=== PATIENT | female | born 1955 | race Two or more races ===

== ENCOUNTER → 2016-11-27 | Outpatient (CLI) | payer BC ==
[2016-11-27 13:23] LABS: Hemoglobin A1C 6.9 % (4.2-6.1)
== END | disposition home or self-care (01) ==
LOC: LABWHC1 07:13
PROVIDERS: ATTEND Internal Medicine
DX: E11.9 Type 2 diabetes mellitus without complications (principal)
CPT/HCPCS: 36415; 82947; 83036

== ENCOUNTER → 2017-03-05 | Outpatient (CLI) | payer BC | END | disposition home or self-care (01) | LOC: LABWHC1 07:44 | PROVIDERS: ATTEND Internal Medicine | DX: E11.9 Type 2 diabetes mellitus without complications (principal) | CPT/HCPCS: 36415; 82947; 83036 ==

== ENCOUNTER → 2017-03-23 | Outpatient (CLI) | payer OTHER ==
--- NOTE | 2017-03-23 16:48 | XR ---
EXAMINATION TYPE: XR ankle complete RT DATE OF EXAM: 03/23/2017 COMPARISON: NONE HISTORY: Ankle pain TECHNIQUE: 3 views FINDINGS: There is mild soft tissue swelling over the lateral malleolus. Ankle mortise is anatomic. T here is mild spurring of the posterior malleolus. I see no fracture. IMPRESSION: No fracture. Mild soft tissue swelling. There is noted sclerosis and cystic change in the medial dome of the talus consistent with some osteo arthritis or osteochondritis dissecans.
--- NOTE | 2017-03-23 16:50 | XR ---
EXAMINATION TYPE: XR foot complete RT DATE OF EXAM: 03/23/2017 COMPARISON: NONE HISTORY: Foot pain TECHNIQUE: 3 views FINDINGS: There is some narrowing and spurring at the first MP joint. I see no fracture nor dislocati on. Metatarsals are intact. IMPRESSION: Mild osteoarthritis in the big toe. No fracture.
== END | disposition home or self-care (01) ==
LOC: RADXRMAIN 16:06
PROVIDERS: ATTEND Emergency Medicine
DX: M19.071 Primary osteoarthritis, right ankle and foot (principal); M79.89 Other specified soft tissue disorders

== ENCOUNTER → 2017-04-01 | Outpatient (CLI) | payer BC ==
--- NOTE | 2017-04-04 10:56 | MM ---
Reason for exam: screening (asymptomatic). Last mammogram was performed 1 year and 1 month ago. History: Patient is postmenopausal. Family history of breast cancer in sister at age 54. Took estrogen for 11 years beginning at age 40. Physical Findings: A clinical breast exam by your physician is recommended on an annual basis and results should be correlated with mammographic findings. MG Screening Mammo w CAD Bilateral CC and MLO view(s) were taken. Prior study comparison: November 25, 2014, bilateral MG screening mammo w CAD. October 12, 2013, bilateral digital screening mammo w/CAD. There are scattered fibroglandular densities. There is no discrete abnormality. ASSESSMENT: Negative, BI-RAD 1 RECOMMENDATION: Routine screening mammogram of both breasts in 1 year.
== END | disposition home or self-care (01) ==
LOC: RADMAMWWP 06:56
PROVIDERS: ATTEND Internal Medicine
DX: Z12.31 Encounter for screening mammogram for malignant neoplasm of breast (principal)

== ENCOUNTER → 2017-07-29 | Outpatient (CLI) | payer BC ==
[2017-07-29 08:20] LABS: ALT 31 U/L (9-52); AST 26 U/L (14-36); Alkaline Phosphatase 97 U/L (38-126); Anion Gap 8 mmol/L; Blood Urea Nitrogen 10 mg/dL (7-17); Calcium 9.5 mg/dL (8.4-10.2); Carbon Dioxide 30 mmol/L (22-30); Chloride 104 mmol/L (98-107); Cholesterol 154 mg/dL (<200); Glucose 139 mg/dL (74-99); HDL Cholesterol 44 mg/dL (40-60); Non-African American GFR(MDRD) >60 (>60 ml/min/1.73 sqM); Potassium 4.5 mmol/L (3.5-5.1); Sodium 142 mmol/L (137-145); Total Bilirubin 0.6 mg/dL (0.2-1.3); Total Protein 7.3 g/dL (6.3-8.2)
[2017-07-29 08:31] LABS: CH 28.5; CHCM 32.7; HCT 43.6 % (34.0-46.0); HDW 2.37; HGB 13.7 gm/dL (11.4-16.0); MCH 27.5 pg (25.0-35.0); MCHC 31.5 g/dL (31.0-37.0); MCV 87.5 fL (80.0-100.0); Mean Platelet Volume 7.9; RBC 4.99 m/uL (3.80-5.40); RDW 13.3 % (11.5-15.5); WBC 8.7 k/uL (3.8-10.6)
[2017-07-29 11:22] LABS: Hemoglobin A1C 7.2 % (4.2-6.1)
[2017-07-29 16:49] LABS: Urine Creatinine 124.6 mg/dL
== END | disposition home or self-care (01) ==
LOC: LABWHC1 07:38
PROVIDERS: ATTEND Internal Medicine
DX: Z00.00 Encounter for general adult medical examination without abnormal findings (principal); E11.9 Type 2 diabetes mellitus without complications; I11.9 Hypertensive heart disease without heart failure; E78.2 Mixed hyperlipidemia; K21.0 Gastro-esophageal reflux disease with esophagitis
CPT/HCPCS: 36415; 80053; 80061; 82043; 82272; 82570; 83036; 84439; 84443; 85027

== ENCOUNTER → 2017-11-02 | Outpatient (CLI) | payer BC ==
--- NOTE | 2017-11-02 17:27 | XR ---
EXAMINATION TYPE: XR hand complete LT DATE OF EXAM: 11/02/2017 COMPARISON: NONE HISTORY: Pain TECHNIQUE: 3 views FINDINGS: I see no fracture nor dislocation. There is some narrowing and spurring at the first carpom etacarpal joint. There are no erosions. There is spurring at the DIP joint of the index finger. IMPRESSION: Osteoarthritis. No fracture seen.
--- NOTE | 2017-11-02 17:30 | XR ---
EXAMINATION TYPE: XR wrist complete LT DATE OF EXAM: 11/02/2017 COMPARISON: NONE HISTORY: Pain TECHNIQUE: 4 views FINDINGS: There is some mild sclerosis and cystic change in the lunate. There is a thin lucent line o marie the radial styloid process on the AP view that could be a hairline longitudinal fracture. There i s no dislocation. IMPRESSION: Possible hairline longitudinal fracture of the radial styloid process. 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
== END | disposition home or self-care (01) ==
LOC: RADXRMAIN 16:52
PROVIDERS: ATTEND Internal Medicine
DX: M19.042 Primary osteoarthritis, left hand (principal); M87.842 Other osteonecrosis, left hand

== ENCOUNTER → 2017-12-17 | Outpatient (CLI) | payer BC ==
[2017-12-17 10:14] LABS: HCT 41.4 % (34.0-46.0); HGB 13.2 gm/dL (11.4-16.0); MCH 27.2 pg (25.0-35.0); MCHC 31.9 g/dL (31.0-37.0); MCV 85.5 fL (80.0-100.0); Mean Platelet Volume 6.6; Platelet Count 350 k/uL (150-450); RBC 4.85 m/uL (3.80-5.40); RDW 12.3 % (11.5-15.5); WBC 11.8 k/uL (3.8-10.6)
[2017-12-17 10:32] LABS: ALT 19 U/L (9-52); AST 16 U/L (14-36); Albumin 3.8 g/dL (3.5-5.0); Alkaline Phosphatase 90 U/L (38-126); Anion Gap 6 mmol/L; Blood Urea Nitrogen 18 mg/dL (7-17); Calcium 9.5 mg/dL (8.4-10.2); Carbon Dioxide 31 mmol/L (22-30); Chloride 104 mmol/L (98-107); Cholesterol 174 mg/dL (<200); Glucose 134 mg/dL (74-99); HDL Cholesterol 51 mg/dL (40-60); LDL Cholesterol,Calculated 103 mg/dL (0-99); Potassium 4.3 mmol/L (3.5-5.1); Sodium 141 mmol/L (137-145); Total Bilirubin 0.7 mg/dL (0.2-1.3); Total Protein 6.7 g/dL (6.3-8.2); Triglycerides 100 mg/dL (<150)
[2017-12-17 10:46] LABS: T4, Free (Free Thyroxine) 1.23 ng/dL (0.78-2.19)
[2017-12-17 20:14] LABS: Hemoglobin A1C 7.2 % (4.0-6.0)
== END | disposition home or self-care (01) ==
LOC: LABWHC1 09:11
PROVIDERS: ATTEND Internal Medicine
DX: E11.9 Type 2 diabetes mellitus without complications (principal); E78.2 Mixed hyperlipidemia; I11.9 Hypertensive heart disease without heart failure
CPT/HCPCS: 36415; 80053; 80061; 83036; 84439; 84443; 85027

== ENCOUNTER → 2018-10-26 | Outpatient (CLI) | payer MEDICARE ==
--- NOTE | 2018-10-29 14:11 | MM ---
Reason for exam: screening (asymptomatic). Last mammogram was performed 1 year and 7 months ago. History: Patient is postmenopausal. Family history of breast cancer in sister at age 54. Took estrogen for 11 years beginning at age 40. MG 3D Screening Mammo W/Cad Bilateral CC and MLO view(s) were taken. Prior study comparison: April 01, 2017, bilateral MG screening mammo w CAD. February 20, 2016, right breast MG 3d work up w/cad RT. The breast tissue is heterogeneously dense. This may lower the sensitivity of mammography. No suspicious abnormality. No significant changes when compared with prior studies. ASSESSMENT: Negative, BI-RAD 1 RECOMMENDATION: Routine screening mammogram of both breasts in 1 year.
== END | disposition home or self-care (01) ==
LOC: RADMAMWWP 09:16
PROVIDERS: ATTEND Internal Medicine
DX: Z12.31 Encounter for screening mammogram for malignant neoplasm of breast (principal)
CPT/HCPCS: 77063; 77067

== ENCOUNTER → 2019-01-16 | Outpatient (CLI) | payer MEDICARE ==
[2019-01-16 09:54] LABS: HCT 42.1 % (34.0-46.0); HGB 13.6 gm/dL (11.4-16.0); MCH 26.9 pg (25.0-35.0); MCHC 32.2 g/dL (31.0-37.0); MCV 83.5 fL (80.0-100.0); Mean Platelet Volume 7.6; Platelet Count 274 k/uL (150-450); RBC 5.04 m/uL (3.80-5.40); RDW 12.9 % (11.5-15.5); WBC 7.9 k/uL (3.8-10.6)
[2019-01-16 17:35] LABS: ALT 39 U/L (8-44); AST 30 U/L (13-35); Albumin/Globulin Ratio 1.72 (1.60-3.17); Alkaline Phosphatase 132 U/L (41-126); Calcium 9.6 mg/dL (8.7-10.3); Carbon Dioxide 24.8 mmol/L (21.6-31.8); Chloride 104 mmol/L (96-109); Cholesterol 206 mg/dL (0-200); Globulin 2.5 g/dL (1.6-3.3); Glucose 247 mg/dL (70-110); Potassium 4.4 mmol/L (3.5-5.5); Sodium 139 mmol/L (135-145); Total Bilirubin 0.6 mg/dL (0.3-1.2); Total Protein 6.8 g/dL (6.2-8.2)
[2019-01-16 20:29] LABS: Hemoglobin A1C 9.6 % (4.0-6.0)
== END | disposition home or self-care (01) ==
LOC: LABWHC1 09:02
PROVIDERS: ATTEND Internal Medicine
DX: Z00.00 Encounter for general adult medical examination without abnormal findings (principal); E11.9 Type 2 diabetes mellitus without complications; I11.9 Hypertensive heart disease without heart failure; E78.2 Mixed hyperlipidemia; K21.0 Gastro-esophageal reflux disease with esophagitis
CPT/HCPCS: 36415; 80053; 80061; 82043; 82272; 82570; 83036; 83721; 84439; 84443; 85027

== ENCOUNTER → 2020-06-17 | Outpatient (CLI) | payer MEDICARE ==
--- NOTE | 2020-06-18 12:00 | MM ---
Reason for exam: screening (asymptomatic). Last mammogram was performed 1 year and 8 months ago. History: Patient is postmenopausal. Family history of breast cancer in sister at age 54. Took estrogen for 11 years beginning at age 40. Physical Findings: A clinical breast exam by your physician is recommended on an annual basis and results should be correlated with mammographic findings. MG 3D Screening Mammo W/Cad Bilateral CC and MLO view(s) were taken. Prior study comparison: October 26, 2018, bilateral MG 3d screening mammo w/cad. April 01, 2017, bilateral MG screening mammo w CAD. There are scattered fibroglandular densities. Finding: There are typically benign round coarse calcifications in the right breast on MLO view. No significant changes in finding since October 26, 2018 and April 01, 2017. ASSESSMENT: Benign, BI-RAD 2 RECOMMENDATION: Routine screening mammogram of both breasts in 1 year.
== END | disposition home or self-care (01) ==
LOC: RADMAMWWP 13:29
PROVIDERS: ATTEND Internal Medicine
DX: Z12.31 Encounter for screening mammogram for malignant neoplasm of breast (principal)
CPT/HCPCS: 77063; 77067

== ENCOUNTER → 2020-12-09 | Outpatient (CLI) | payer MEDICARE | END | disposition home or self-care (01) | LOC: LABPAT 09:57 | PROVIDERS: ATTEND Surgery | DX: Z01.812 Encounter for preprocedural laboratory examination (principal); Z20.822 Contact with and (suspected) exposure to COVID-19 | CPT/HCPCS: U0003; C9803 ==

== ENCOUNTER → 2020-12-11 | Outpatient (CLI) | payer MEDICARE ==
[2020-12-11 08:09] LABS: Basophils # (A) 0.1 k/uL (0-0.2); Basophils % (A) 1 %; Eosinophils # (A) 0.2 k/uL (0-0.7); Eosinophils % (A) 3 %; HCT 37.9 % (34.0-46.0); HGB 12.6 gm/dL (11.4-16.0); Lymphocytes # (A) 3.4 k/uL (1.0-4.8); Lymphocytes % (A) 40 %; MCHC 33.1 g/dL (31.0-37.0); MCV 84.7 fL (80.0-100.0); Mean Platelet Volume 7.4; Monocytes # (A) 0.4 k/uL (0-1.0); Monocytes % (A) 5 %; Neutrophils # (A) 4.3 k/uL (1.3-7.7); Neutrophils % (A) 50 %; Platelet Count 315 k/uL (150-450); RBC 4.48 m/uL (3.80-5.40); RDW 12.4 % (11.5-15.5); WBC 8.6 k/uL (3.8-10.6)
== END | disposition home or self-care (01) ==
LOC: LABPAT 07:24
PROVIDERS: ATTEND Anesthesiology
DX: Z01.818 Encounter for other preprocedural examination (principal)
CPT/HCPCS: 36415; 85025

== ENCOUNTER → 2020-12-12 | Outpatient (CLI) | payer MEDICARE | END | disposition home or self-care (01) | LOC: LABPAT 07:33 | PROVIDERS: ATTEND Surgery | DX: Z01.818 Encounter for other preprocedural examination (principal) ==

== ENCOUNTER 2020-12-16 09:46 | Day surgery (SDC) | payer MEDICARE ==
[2020-12-10 10:58] VITALS: BMI 25.9
[~2020-12-16 09:46] MED LIST: DEXAMETHASONE SOD PHOSPHATE 4 MG/ML 1 ML VIAL IV ONE; LACTATED RINGERS 1,000 ML IV SCH; LIDOCAINE 1% (10MG/ML) FOR IV START INTRADERMA PRN; ONDANSETRON 4 MG/2 ML VIAL IVP ONE
[2020-12-16 10:16] LABS: Glucose,Whole Blood 147 mg/dL (75-99)
[2020-12-16] MEDS ORDERED: MIDAZOLAM 2 MG/2 ML VIAL IVP ONE (10:54)
--- NOTE | 2020-12-16 10:59 | P.ANPRN ---
Procedure Note - Anesthesia - Nerve Block Performed Bilateral Erector Spinae Single Time Out Performed: Yes Date of Procedure: 12/16/20 Procedure Start Time: 10:35 Procedure Stop Time: 10:47 Location of Patient: PreOp Indication: Acute Post-Operative Pain, Requested by Surgeon Specifically requested for management of pain by DrBerna: Ben Ronquillo Sedation Type: Sedate with meaningful contact maintained Preparation: Sterile Prep Position: Prone Catheter: None Needle Types: ToYoonoy Needle Gauge: 20 Ultrasound used to visualize needle placement: Yes Ultrasound used to observe medication spread: Yes Injectate: 0.5% Ropivacaine (see comment for volume) Blood Aspirated: No Pain Paresthesia on Injection Noted: No Resistance on Injection: Normal Image Stored and Saved: Yes Events: Uneventful and Well Tolerated (0.25% Ropivacaine 20cc used for both sides)
[2020-12-16] MEDS ORDERED: HEPARIN SODIUM,PORCINE 5,000 UNIT/ML 1 ML VIAL ONE (11:36)
[2020-12-16] MEDS ORDERED: ROCURONIUM 10 MG/ML (5 ML VIAL) IV ONE (12:11)
[2020-12-16] MEDS ORDERED: GLYCOPYRROLATE 0.2 MG/ML 2 ML VIAL ONE (12:11)
[2020-12-16] MEDS ORDERED: LIDOCAINE 1% INJ 10MG/ML (20 ML MDV) ONE (12:11)
[2020-12-16] MEDS ORDERED: ROPIVACAINE 5 MG/ML 30 ML VIAL ONE (12:11)
[2020-12-16] MEDS ORDERED: MIDAZOLAM 2 MG/2 ML VIAL ONE (12:11)
[2020-12-16] MEDS ORDERED: NEOSTIGMINE 1 MG/ML 10 ML VIAL ONE (12:11)
[2020-12-16] MEDS ORDERED: PROPOFOL 10 MG/ML 20 ML VIAL IV ONE (12:11)
[2020-12-16] MEDS ORDERED: fentaNYL (PF) 50 MCG/ML 2 ML AMP ONE (12:11)
[2020-12-16] MEDS ORDERED: BUPIVACAINE-EPI 0.5%-1:200,000 10 ML VIAL SQ ONE (12:38)
[2020-12-16] MEDS ORDERED: LACTATED RINGERS 1,000 ML IV ONE (12:59)
--- NOTE | 2020-12-16 13:46 | P.OP ---
Date of Procedure: 12/16/20 Preoperative Diagnosis: Incisional hernia Postoperative Diagnosis: Incisional hernia Procedure(s) Performed: Robotic incisional hernia repair with mesh Anesthesia: AAKASH Surgeon: Ben Ronquillo Pathology: other (Hernia sac) Condition: stable Disposition: same day Indications for Procedure: 65-year-old female presents today for elective incisional hernia repair. She noticed a bulge on her abdomen a previous incision site and has had some increased discomfort at that site. She was explained the Risks, benefits and alternatives to the procedure and did provide consent prior to attending the operating suite. Operative Findings: Incisional hernia Description of Procedure: Patient was brought into the operating suite and placed in supine position. Gen. anesthesia with endotracheal intubation was performed as per anesthesia team. The right arm was tucked against the body and a footboard was applied. Cold exiting was used to prep the skin followed by application of sterile drapes and a timeout was performed to verify correct patient and correct procedure. The patient was confirmed to received perioperative IV antibiotics, bilateral SCDs and 5000 units of subcu continue separate for DVT prophylaxis. A 5 mm skin incision was made along the left accessory line at [place] and the abdomen was entered under direct visualization using a Visiport. Pneumoperitoneum was achieved. Significant amount of omentum was adhered to the superior portion of the abdominal wall and the hernia site was clearly visualized. An additional 8 mm trocar was placed in the left lower abdomen and 12 mm trocar was placed in left mid abdomen. The initial 5 mm trocar was upsized to an 8 mm trocar. The da Mercedes robot was undocked. A 30 robotic camera was used. A robotic forcep and monopolar scissors were inserted through the 8 mm robotic trochars. Dissection was carried to remove the adhesive bands from the omental tissue from the abdominal wall. The hernia defect was clearly visualized and contained preperitoneal fat and omentum which were reduced using gentle traction and countertraction method. The falciform ligament was divided, using monopolar scissors close to the anterior abdominal wall to create a landing zone for the mesh. A [employer] system circular mesh was rolled and introduced to the abdominal cavity. The 12 mm trocar. The hernia defect was closed primarily with a running suture using OB lock by taking 1 cm bite on the fascia on either side of the defect. A Power Yoon device was inserted through the middle of the hernia defect and the stay suture on the mesh was grasped to elevate the mesh against the anterior abdominal wall. The balloon was then inflated. The mesh was circumferentially sutured to the peritoneum of the anterior abdominal wall using 2 OB lock without any folds or kinked. The robot was then undocked. Laparoscopic 30 camera was reinserted. All trocar sites were examined. No evidence of bleeding. The 12 mm trocar site was closed using 2 transfer fascial sutures of 0 Vicryl which were placed using a Power-Nyla device. Pneumoperitoneum was evacuated and the skin incisions were closed using 4-0 Vicryl followed by Dermabond skin glue. The sponge, instrument and needle count were correct 2. Abdominal binder was applied. The patient was x-rayed and taken to postanesthesia care unit in stable condition.
[2020-12-16 13:50] VITALS: TEMP 97.4
[2020-12-16] MEDS ORDERED: HYDROmorphone 0.5 MG/0.5 ML SYRINGE IVP ONE (14:06)
[2020-12-16 14:15] LABS: Glucose,Whole Blood 205 mg/dL (75-99)
[2020-12-16 14:41] VITALS: RESP 18
[2020-12-16] MEDS ORDERED: HYDROcodone/APAP 5-325MG 1 EACH TAB ONE (14:50)
[2020-12-16 15:06] VITALS: BP 118/66; PULSE 63
== END 2020-12-16 15:45 | disposition home or self-care (01) ==
LOC: OR 09:46
PROVIDERS: ATTEND Surgery
DX: K43.2 Incisional hernia without obstruction or gangrene (principal); E11.8 Type 2 diabetes mellitus with unspecified complications; I10 Essential (primary) hypertension; E78.00 Pure hypercholesterolemia, unspecified; E78.5 Hyperlipidemia, unspecified; J30.2 Other seasonal allergic rhinitis; G43.909 Migraine, unspecified, not intractable, without status migrainosus; K75.9 Inflammatory liver disease, unspecified; Z98.890 Other specified postprocedural states; Z96.651 Presence of right artificial knee joint; Z90.710 Acquired absence of both cervix and uterus; Z90.49 Acquired absence of other specified parts of digestive tract; Z80.3 Family history of malignant neoplasm of breast; Z80.9 Family history of malignant neoplasm, unspecified; Z83.3 Family history of diabetes mellitus; Z79.84 Long term (current) use of oral hypoglycemic drugs; Z79.82 Long term (current) use of aspirin; Z79.899 Other long term (current) drug therapy; Z82.49 Family history of ischemic heart disease and other diseases of the circulatory system
CPT/HCPCS: 49654; 64999; 88302; C1781; J2250; J1644; J1100; J2710; J0690; J2405; J2001; J3010; J2795; J2704; J1170; 64461; 86850; 86900; 86901

== ENCOUNTER 2021-01-11 15:46 | Emergency (ER) | payer MEDICARE ==
[2021-01-11 16:21] LABS: ALT 18 U/L (4-34); AST 32 U/L (14-36); African American GFR (CKD) >90 (>60 ml/min/1.73 sqM); Albumin 4.3 g/dL (3.5-5.0); Alkaline Phosphatase 83 U/L (38-126); Anion Gap 11 mmol/L; Blood Urea Nitrogen 10 mg/dL (7-17); Calcium 9.3 mg/dL (8.4-10.2); Carbon Dioxide 25 mmol/L (22-30); Chloride 95 mmol/L (98-107); Glucose 143 mg/dL (74-99); Non-African American GFR(CKD) >90 (>60 ml/min/1.73 sqM); Potassium 4.2 mmol/L (3.5-5.1); Sodium 131 mmol/L (137-145); Total Bilirubin 0.5 mg/dL (0.2-1.3); Total Protein 7.4 g/dL (6.3-8.2)
--- NOTE | 2021-01-11 17:25 | XR ---
EXAMINATION TYPE: XR chest 2V DATE OF EXAM: 01/11/2021 COMPARISON: 09/18/2016. HISTORY: Cough status post recent hernia repair. TECHNIQUE: Frontal and lateral views of the chest are obtained. FINDINGS: There is no focal air space opacity, pleural effusion, or pneumothorax seen. The cardiac silhouette size is within normal limits. The osseous structures are intact. IMPRESSION: No acute cardiopulmonary process.
[2021-01-11 18:15] LABS: Basophils # (A) 0.1 k/uL (0-0.2); Basophils % (A) 2 %; Eosinophils # (A) 0.1 k/uL (0-0.7); Eosinophils % (A) 1 %; HCT 39.8 % (34.0-46.0); HGB 13.5 gm/dL (11.4-16.0); Lymphocytes # (A) 1.4 k/uL (1.0-4.8); Lymphocytes % (A) 20 %; MCH 27.8 pg (25.0-35.0); MCV 81.9 fL (80.0-100.0); Mean Platelet Volume 7.2; Monocytes # (A) 0.6 k/uL (0-1.0); Monocytes % (A) 9 %; Neutrophils # (A) 4.9 k/uL (1.3-7.7); Neutrophils % (A) 67 %; Platelet Count 311 k/uL (150-450); RBC 4.86 m/uL (3.80-5.40); RDW 12.3 % (11.5-15.5); WBC 7.2 k/uL (3.8-10.6)
[2021-01-11] MEDS ORDERED: SODIUM CHLORIDE 0.9% 1,000 ML IV ONE (18:18)
[2021-01-11] MEDS ORDERED: ONDANSETRON 4 MG/2 ML VIAL IVP STA (18:19)
[2021-01-11 18:39] LABS: Appearance,Urine Clear (Clear); Bilirubin,Urine Negative (Negative); Blood,Urine Negative (Negative); Color,Urine Yellow; Glucose,Urine (UA) Negative (Negative); Hyaline Casts,Urine 1 /lpf (0-2); Ketones,Urine 1+ (Negative); Leukocyte Esterase,Urine Negative (Negative); Mucus,Urine Moderate /hpf; Nitrite,Urine Negative (Negative); Protein,Urine 1+ (Negative); RBC,Urine 1 /hpf (0-5); Specific Gravity,Urine 1.024 (1.001-1.035); Squamous Epithelial Cell,Urine 5 /hpf (0-4); Urobilinogen,Urine <2.0 mg/dL (<2.0); WBC,Urine 3 /hpf (0-5)
--- NOTE | 2021-01-11 18:51 | CT ---
EXAMINATION TYPE: CT abdomen pelvis w con DATE OF EXAM: 01/11/2021 COMPARISON: None available. HISTORY: abdominal pain, vomiting, fever, +covid CT DLP: 656.7 mGycm Automated exposure control for dose reduction was used. TECHNIQUE: Helical acquisition of images was performed from the lung bases through the pelvis. CONTRAST: Performed without Oral Contrast and with IV Contrast, patient injected with 100 mL of Isovue 300. FINDINGS: LUNG BASES: Minimal bibasilar opacities. LIVER/GB: Hepatomegaly with steatosis and without acute abnormality. Cholecystectomy. PANCREAS: No significant abnormality is seen. SPLEEN: No significant abnormality is seen. ADRENALS: No significant abnormality is seen. KIDNEYS: No significant abnormality is seen. FREE AIR: No free air is visualized. RETROPERITONEAL ADENOPATHY: None visualized REPRODUCTIVE ORGANS: No significant abnormality is seen URINARY BLADDER: No significant abnormality is seen. PELVIC ADENOPATHY: None visualized. OSSEOUS STRUCTURES: No significant abnormality is seen. BOWEL: Small to moderate simple appearing peritoneal fluid along the anterior abdominal wall measuri ng 9.5 cm transverse and 1.5 cm in thickness. No bowel obstruction or free air OTHER: None IMPRESSION: AGE-INDETERMINATE SMALL TO MODERATE SIMPLE-APPEARING PERITONEAL FLUID ALONG THE ANTERIOR ABDOMINAL WA LL. CORRELATE CLINICALLY FOR REMOTE POST SURGICAL SEROMA. Superimposed infection is better excluded c linically. Minimal bibasilar opacities, may represent atelectasis versus developing infiltrates.
[2021-01-11] MEDS ORDERED: ACETAMINOPHEN TAB 500 MG TAB PO STA (19:21)
--- NOTE | 2021-01-11 19:40 | ED ---
General Adult HPI - General Chief complaint: Nausea/Vomiting/Diarrhea Stated complaint: abdominal pain and n&V Source: patient Mode of arrival: ambulatory Limitations: no limitations - History of Present Illness Initial comments: 65-year-old female past medical history of diabetes, hypertension who presents the emergency department with reported abdominal pain. She states she had hernia repair on the second by Dr. Ronquillo. Reports that for the past 7 days she has been coughing and having nausea. She has also had some episodes of nonbilious, nonbloody vomiting which has exacerbated her abdominal pain. Patient was concerned about her recent abdominal repair and therefore presented to the emergency room for evaluation. Denies sick contacts or recent travel. No chest pain. No changes in her bowel or bladder habits. No other alleviating, precipitating or modifying factors - Related Data Home Medications Medication Instructions Recorded Confirmed Aspirin 81 mg PO DAILY 04/15/14 12/10/20 Simvastatin 40 mg PO HS 04/15/14 12/10/20 atenoloL [Atenolol] 50 mg PO HS 04/15/14 12/10/20 Alendronate Sodium 70 mg PO WEEKLY 12/10/20 12/10/20 Ascorbic Acid [Vitamin C] 500 mg PO DAILY 12/10/20 12/10/20 Cholecalciferol (Vitamin D3) 125 mcg PO DAILY 12/10/20 12/10/20 [Vitamin D3 (5000 Iu)] Fexofenadine HCl [Otilia Allergy] 180 mg PO DAILY 12/10/20 12/16/20 Losartan Potassium [Cozaar] 25 mg PO DAILY 12/10/20 12/16/20 Magnesium 500 mg PO DAILY 12/10/20 12/10/20 Pioglitazone HCl 15 mg PO DAILY 12/10/20 12/10/20 Turmeric Root Extract [Turmeric] 500 mg PO DAILY 12/10/20 12/10/20 Zinc 50 mg PO DAILY 12/10/20 12/10/20 metFORMIN HCL [Glucophage] 1,000 mg PO BID 12/10/20 12/10/20 Previous Rx's Medication Instructions Recorded HYDROcodone/APAP 5-325MG [[place] 1 tab PO Q6HR PRN 3 Days #12 tab 12/16/20 5-325] Ibuprofen [Motrin] 600 mg PO Q8HR PRN #24 tab 12/16/20 Ondansetron Odt [Zofran Odt] 4 mg PO Q8HR PRN #10 tab 01/11/21 Allergies Allergy/AdvReac Type Severity Reaction Status Date / Time erythromycin base Allergy Rash/Hives Verified 01/11/21 15:51 [Erythromycin Base] latex Allergy Rash/Hives Verified 01/11/21 15:51 egg AdvReac Itching, Verified 01/11/21 15:51 IF EXCESS INTAKE ONLY Review of Systems ROS Statement: Those systems with pertinent positive or pertinent negative responses have been documented in the HPI. ROS Other: All systems not noted in ROS Statement are negative. 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 HX HEPATITIS A. RT BENIGN KIDNEY TUMOR History of Any Multi-Drug Resistant Organisms: None Reported Past Surgical History: Hernia Repair Additional Past Surgical History / Comment(s): 1/3 RT KIDNEY REMOVED. SINUS SURG X2. RT TOTAL KNEE REPLACEMENT. RT SHOULDER ROTATOR CUFF SURG. Past Anesthesia/Blood Transfusion Reactions: Postoperative Nausea & Vomiting (PONV) Past Psychological History: No Psychological Hx Reported Smoking Status: Never smoker Past Alcohol Use History: Occasional Past Drug Use History: None Reported - Past Family History Mother Family Medical History: Hypertension Additional Family Medical History / Comment(s): ALZHEIMER'S Father Family Medical History: Cancer, Hyperlipidemia Additional Family Medical History / Comment(s): BLADDER CANCER Sister(s) Family Medical History: Cancer Additional Family Medical History / Comment(s): BRAIN ANEURYSM. BREAST CANCER General Exam Limitations: no limitations General appearance: alert, in no apparent distress Head exam: Present: atraumatic, normocephalic, normal inspection Eye exam: Present: normal appearance, PERRL, EOMI. Absent: scleral icterus, conjunctival injection, periorbital swelling ENT exam: Present: normal exam, mucous membranes moist Neck exam: Present: normal inspection. Absent: tenderness, meningismus, lymphadenopathy Respiratory exam: Present: normal lung sounds bilaterally. Absent: respiratory distress, wheezes, rales, rhonchi, stridor Cardiovascular Exam: Present: regular rate, normal rhythm, normal heart sounds. Absent: systolic murmur, diastolic murmur, rubs, gallop, clicks GI/Abdominal exam: Present: soft, tenderness (right upper quadrant), normal bowel sounds. Absent: distended, guarding, rebound, rigid Extremities exam: Present: normal inspection, full ROM, normal capillary refill. Absent: tenderness, pedal edema, joint swelling, calf tenderness Back exam: Present: normal inspection Neurological exam: Present: alert, oriented X3, CN II-XII intact Psychiatric exam: Present: normal affect, normal mood Skin exam: Present: warm, dry, intact, normal color. Absent: rash Course Vital Signs 01/11/21 01/11/21 01/11/21 15:47 19:30 20:23 Temperature 100.1 F H 99.4 F 99.1 F Pulse Rate 86 79 77 Respiratory 18 18 18 Rate Blood Pressure 157/86 136/73 127/73 O2 Sat by Pulse 97 93 L 94 L Oximetry 01/11/21 01/11/21 01/11/21 20:45 21:00 21:15 Temperature 98.9 F 99 F 99 F Pulse Rate 75 72 70 Respiratory 18 18 18 Rate Blood Pressure 131/71 133/80 112/72 O2 Sat by Pulse 94 L 93 L 93 L Oximetry 01/11/21 01/11/21 21:45 22:45 Temperature 98.9 F 98.7 F Pulse Rate 75 77 Respiratory 18 18 Rate Blood Pressure 125/76 110/73 O2 Sat by Pulse 93 L 93 L Oximetry Medical Decision Making - Medical Decision Making Upon arrival patient is placed into room 17. There are history of physical exam is performed. IV is established and the patient is given a liter bolus of normal saline, 4 mg of Zofran and a gram of Tylenol. Laboratory studies are conducted. Patient does test positive for cold bed. CT was performed the patient's abdomen which demonstrates age-indeterminate small to moderate simple appearing peritoneal fluid along the anterior abdominal wall. Correlate clinically for remote postsurgical seroma. There does not appear to be overlying cellulitis. No drainage from the incision wounds. Incisions appear well-healed. I do not believe superimposed infection is a factor at this time. Patient also has minimal IVs or opacities. These results are discussed with the patient. Patient does qualify for Bam treatment which she is given. Patient provided Zofran for home. I spoke with Dr. everett in regards to the patient's CT he does agree to conservative management with follow up in Dr. Ronquillo's office. Patient agreed to this. She has any new or worsening symptoms she should return to the emergency room if your patient discharged home in stable condition - Lab Data Result diagrams: 01/11/21 18:00 01/11/21 15:58 Lab Results 01/11/21 01/11/21 01/11/21 Range/Units 15:58 15:58 18:00 WBC 7.2 (3.8-10.6) k/uL RBC 4.86 (3.80-5.40) m/uL Hgb 13.5 (11.4-16.0) gm/dL Hct 39.8 (34.0-46.0) % MCV 81.9 (80.0-100.0) fL MCH 27.8 (25.0-35.0) pg MCHC 34.0 (31.0-37.0) g/dL RDW 12.3 (11.5-15.5) % Plt Count 311 (150-450) k/uL MPV 7.2 Neutrophils % 67 % Lymphocytes % 20 % Monocytes % 9 % Eosinophils % 1 % Basophils % 2 % Neutrophils # 4.9 (1.3-7.7) k/uL Lymphocytes # 1.4 (1.0-4.8) k/uL Monocytes # 0.6 (0-1.0) k/uL Eosinophils # 0.1 (0-0.7) k/uL Basophils # 0.1 (0-0.2) k/uL Sodium 131 L (137-145) mmol/L Potassium 4.2 (3.5-5.1) mmol/L Chloride 95 L (98-107) mmol/L Carbon Dioxide 25 (22-30) mmol/L Anion Gap 11 mmol/L BUN 10 (7-17) mg/dL Creatinine 0.53 (0.52-1.04) mg/dL Est GFR (CKD-EPI)AfAm >90 (>60 ml/min/1.73 sqM) Est GFR (CKD-EPI)NonAf >90 (>60 ml/min/1.73 sqM) Glucose 143 H (74-99) mg/dL Calcium 9.3 (8.4-10.2) mg/dL Total Bilirubin 0.5 (0.2-1.3) mg/dL AST 32 (14-36) U/L ALT 18 (4-34) U/L Alkaline Phosphatase 83 (38-126) U/L Total Protein 7.4 (6.3-8.2) g/dL Albumin 4.3 (3.5-5.0) g/dL Urine Color Urine Appearance (Clear) Urine pH (5.0-8.0) Ur Specific [place] (1.001-1.035) Urine Protein (Negative) Urine Glucose (UA) (Negative) Urine Ketones (Negative) Urine Blood (Negative) Urine Nitrite (Negative) Urine Bilirubin (Negative) Urine Urobilinogen (<2.0) mg/dL Ur Leukocyte Esterase (Negative) Urine RBC (0-5) /hpf Urine WBC (0-5) /hpf Ur Squamous Epith Cells (0-4) /hpf Hyaline Casts (0-2) /lpf Urine Mucus (None) /hpf Coronavirus (PCR) Detected A (Not Detectd) 01/11/21 Range/Units 18:00 WBC (3.8-10.6) k/uL RBC (3.80-5.40) m/uL Hgb (11.4-16.0) gm/dL Hct (34.0-46.0) % MCV (80.0-100.0) fL MCH (25.0-35.0) pg MCHC (31.0-37.0) g/dL RDW (11.5-15.5) % Plt Count (150-450) k/uL MPV Neutrophils % % Lymphocytes % % Monocytes % % Eosinophils % % Basophils % % Neutrophils # (1.3-7.7) k/uL Lymphocytes # (1.0-4.8) k/uL Monocytes # (0-1.0) k/uL Eosinophils # (0-0.7) k/uL Basophils # (0-0.2) k/uL Sodium (137-145) mmol/L Potassium (3.5-5.1) mmol/L Chloride (98-107) mmol/L Carbon Dioxide (22-30) mmol/L Anion Gap mmol/L BUN (7-17) mg/dL Creatinine (0.52-1.04) mg/dL Est GFR (CKD-EPI)AfAm (>60 ml/min/1.73 sqM) Est GFR (CKD-EPI)NonAf (>60 ml/min/1.73 sqM) Glucose (74-99) mg/dL Calcium (8.4-10.2) mg/dL Total Bilirubin (0.2-1.3) mg/dL AST (14-36) U/L ALT (4-34) U/L Alkaline Phosphatase (38-126) U/L Total Protein (6.3-8.2) g/dL Albumin (3.5-5.0) g/dL Urine Color Yellow Urine Appearance Clear (Clear) Urine pH 6.0 (5.0-8.0) Ur Specific [place] 1.024 (1.001-1.035) Urine Protein 1+ H (Negative) Urine Glucose (UA) Negative (Negative) Urine Ketones 1+ H (Negative) Urine Blood Negative (Negative) Urine Nitrite Negative (Negative) Urine Bilirubin Negative (Negative) Urine Urobilinogen <2.0 (<2.0) mg/dL Ur Leukocyte Esterase Negative (Negative) Urine RBC 1 (0-5) /hpf Urine WBC 3 (0-5) /hpf Ur Squamous Epith Cells 5 H (0-4) /hpf Hyaline Casts 1 (0-2) /lpf Urine Mucus Moderate H (None) /hpf Coronavirus (PCR) (Not Detectd) Disposition Clinical Impression: Abdominal pain, COVID-19 Disposition: HOME SELF-CARE Condition: Stable Instructions (If sedation given, give patient instructions): Coronavirus Disease 2019 (COVID-19) Additional Instructions: Alternate taking Motrin and Tylenol for fever and pain. Take the Zofran for nausea. Follow up with your primary care doctor in 2-4 days. Return to the emergency room for any new or worsening symptoms Prescriptions: Ondansetron Odt [Zofran Odt] 4 mg PO Q8HR PRN #10 tab PRN Reason: Nausea Is patient prescribed a controlled substance at d/c from ED?: No Referrals: Kayla Mary MD [Primary Care Provider] - 1-2 days Time of Disposition: 19:40
[2021-01-11] MEDS ORDERED: BAMLANIVIMAB (EUA) 700 MG in SODIUM CHLORIDE 0.9% 50 ML IVPB ONE (20:15)
[2021-01-11 22:48] VITALS: PULSE 77; TEMP 98.7
[2021-01-11 22:50] VITALS: BP 110/73; RESP 18
== END 2021-01-11 22:45 | disposition home or self-care (01) ==
LOC: EC 15:46
DX: U07.1 COVID-19 (principal); R10.9 Unspecified abdominal pain; I10 Essential (primary) hypertension; E78.5 Hyperlipidemia, unspecified; E11.9 Type 2 diabetes mellitus without complications; M19.90 Unspecified osteoarthritis, unspecified site; Z79.84 Long term (current) use of oral hypoglycemic drugs; Z79.899 Other long term (current) drug therapy
CPT/HCPCS: 36415; 80053; 85025; 81001; 87635; 71046; 74177; 99284; 96365; 96361; J2405; Q9967; Q0239

== ENCOUNTER 2021-02-10 14:21 | Emergency (ER) | payer MEDICARE ==
[2021-02-10] MEDS ORDERED: SODIUM CHLORIDE 0.9% 1,000 ML IV STA (14:51)
[2021-02-10] MEDS ORDERED: KETOROLAC 15 MG/ML 1 ML VIAL IVP STA (14:51)
--- NOTE | 2021-02-10 15:44 | ED ---
Female Urogenital HPI - General Chief complaint: Urogenital Stated complaint: Blood in urine,ABD pain Time Seen by Provider: 02/10/21 14:42 Source: patient Mode of arrival: ambulatory Limitations: no limitations - History of Present Illness Initial comments: Patient is a 65-year-old female presenting to the emergency Department with complaints of right flank pain, right side of abdomen pain since yesterday. She states over the last 2 days she's noticed a little bit of pink in her urine and then today it is more pronounced. 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 She states she's had no problems since. She denies any fevers or chills, no nausea or vomiting. She admits to history of cholecystectomy, appendectomy, no other abdominal surgeries. She denies any chest pain or shortness of breath. She has no further complaints at this time. Upon arrival to the ER, her vitals are stable. - Related Data Home Medications Medication Instructions Recorded Confirmed Aspirin 81 mg PO DAILY 04/15/14 12/10/20 Simvastatin 40 mg PO HS 04/15/14 12/10/20 Alendronate Sodium 70 mg PO WEEKLY 12/10/20 12/10/20 Ascorbic Acid [Vitamin C] 500 mg PO DAILY 12/10/20 12/10/20 Fexofenadine HCl [Otilia Allergy] 180 mg PO DAILY 12/10/20 12/16/20 Losartan Potassium [Cozaar] 25 mg PO DAILY 12/10/20 12/16/20 Pioglitazone HCl 15 mg PO DAILY 12/10/20 12/10/20 Turmeric Root Extract [Turmeric] 500 mg PO DAILY 12/10/20 12/10/20 metFORMIN HCL [Glucophage] 1,000 mg PO BID 12/10/20 12/10/20 Atenolol [Tenormin] 50 mg PO DAILY 02/10/21 02/10/21 Cholecalciferol [Vitamin D3 (25 50 mcg PO BID 02/10/21 02/10/21 Mcg = 1000 Iu)] Previous Rx's Medication Instructions Recorded Cephalexin [Keflex] 500 mg PO BID 10 Days #20 cap 02/10/21 Allergies Allergy/AdvReac Type Severity Reaction Status Date / Time erythromycin base Allergy Rash/Hives Verified 02/10/21 17:33 [Erythromycin Base] latex Allergy Rash/Hives Verified 02/10/21 17:33 egg AdvReac Itching, Verified 02/10/21 17:33 IF EXCESS INTAKE ONLY Review of Systems ROS Statement: Those systems with pertinent positive or pertinent negative responses have been documented in the HPI. ROS Other: All systems not noted in ROS Statement are negative. 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 HX HEPATITIS A. RT BENIGN KIDNEY TUMOR History of Any Multi-Drug Resistant Organisms: None Reported Past Surgical History: Hernia Repair Additional Past Surgical History / Comment(s): 1/3 RT KIDNEY REMOVED. SINUS SURG X2. RT TOTAL KNEE REPLACEMENT. RT SHOULDER ROTATOR CUFF SURG. Past Anesthesia/Blood Transfusion Reactions: Postoperative Nausea & Vomiting (PONV) Past Psychological History: No Psychological Hx Reported Smoking Status: Never smoker Past Alcohol Use History: Occasional Past Drug Use History: None Reported - Past Family History Mother Family Medical History: Hypertension Additional Family Medical History / Comment(s): ALZHEIMER'S Father Family Medical History: Cancer, Hyperlipidemia Additional Family Medical History / Comment(s): BLADDER CANCER Sister(s) Family Medical History: Cancer Additional Family Medical History / Comment(s): BRAIN ANEURYSM. BREAST CANCER General Exam - General Exam Comments Initial Comments: GENERAL: Patient is well-developed and well-nourished. Patient is nontoxic and in no acute distress. HEAD: Atraumatic, normocephalic. EYES: Pupils equal round and reactive to light, extraocular movements intact, sclera anicteric, conjunctiva are normal. Eyelids were unremarkable. ENT: TMs normal, nares patent, oropharynx clear without exudates. Moist mucous membranes. NECK: Normal range of motion, supple without lymphadenopathy or JVD. LUNGS: Unlabored respirations. Breath sounds clear to auscultation bilaterally and equal. No wheezes rales or rhonchi. HEART: Regular rate and rhythm without murmurs, rubs or gallops. ABDOMEN: Soft, tender to palpation of the right flank, right side of the abdomen, normoactive bowel sounds. No guarding, no rebound. No masses appreciated. : Deferred MUSCULOSKELETAL: Normal extremities with adequate strength and normal range of motion, no pitting or edema. No clubbing or cyanosis. NEUROLOGICAL: Patient is alert and oriented x 3. Motor and sensory are also intact. Cranial nerves II through XII grossly intact. Symmetrical smile. Normal speech, normal gait. PSYCH: Normal mood, normal affect. SKIN: Warm, Dry, normal turgor, no rashes or lesions noted. Limitations: no limitations Course Vital Signs 02/10/21 14:34 Temperature 98.4 F Pulse Rate 81 Respiratory 18 Rate Blood Pressure 167/102 O2 Sat by Pulse 97 Oximetry Medical Decision Making - Medical Decision Making Patient is a 65-year-old female here with right flank pain, right side abdomen pain since yesterday, hematuria 2 days. She does have a history of a benign tumor removal of her right kidney in the , no issues since. No fevers. Patient does have a white count of 14.9, kidney function is stable, lactic acid is normal at 1.1. Urine shows significant infection, wbc clumps, urine culture is pending. CT of the abdomen and pelvis shows no evidence of acute abdomen and pelvis, kidneys are normal. Discussed these findings with the patient. Her symptoms are most likely related to the UTI. I do suspect pyelonephritis. Patient will be given 1 g of Rocephin here in the ER. I will continue her on Keflex for 10 days. She can follow-up with her PCP. Patient is stable for discharge. Patient is in agreement with this plan of care. Return parameters were discussed with the patient and they verbalized understanding. Case discussed with Dr. Juarez. - Lab Data Result diagrams: 02/10/21 16:14 02/10/21 16:14 Lab Results 02/10/21 02/10/21 02/10/21 Range/Units 16:14 16:14 16:14 WBC 14.9 H (3.8-10.6) k/uL RBC 4.79 (3.80-5.40) m/uL Hgb 13.0 (11.4-16.0) gm/dL Hct 40.7 (34.0-46.0) % MCV 85.1 (80.0-100.0) fL MCH 27.1 (25.0-35.0) pg MCHC 31.8 (31.0-37.0) g/dL RDW 13.1 (11.5-15.5) % Plt Count 285 (150-450) k/uL MPV 7.6 Neutrophils % 70 % Lymphocytes % 21 % Monocytes % 6 % Eosinophils % 2 % Basophils % 1 % Neutrophils # 10.4 H (1.3-7.7) k/uL Lymphocytes # 3.1 (1.0-4.8) k/uL Monocytes # 0.9 (0-1.0) k/uL Eosinophils # 0.2 (0-0.7) k/uL Basophils # 0.1 (0-0.2) k/uL PT 9.6 (9.0-12.0) sec INR 0.9 (<1.2) APTT 23.3 (22.0-30.0) sec Sodium (137-145) mmol/L Potassium (3.5-5.1) mmol/L Chloride (98-107) mmol/L Carbon Dioxide (22-30) mmol/L Anion Gap mmol/L BUN (7-17) mg/dL Creatinine (0.52-1.04) mg/dL Est GFR (CKD-EPI)AfAm (>60 ml/min/1.73 sqM) Est GFR (CKD-EPI)NonAf (>60 ml/min/1.73 sqM) Glucose (74-99) mg/dL Plasma Lactic Acid Daren (0.7-2.0) mmol/L Calcium (8.4-10.2) mg/dL Total Bilirubin (0.2-1.3) mg/dL AST (14-36) U/L ALT (4-34) U/L Alkaline Phosphatase (38-126) U/L Total Protein (6.3-8.2) g/dL Albumin (3.5-5.0) g/dL Urine Color Dark Brown Urine Appearance Turbid H (Clear) Urine pH 6.0 (5.0-8.0) Ur Specific [place] 1.017 (1.001-1.035) Urine Protein 2+ H (Negative) Urine Glucose (UA) Negative (Negative) Urine Ketones Trace H (Negative) Urine Blood Large H (Negative) Urine Nitrite Negative (Negative) Urine Bilirubin Negative (Negative) Urine Urobilinogen <2.0 (<2.0) mg/dL Ur Leukocyte Esterase Large H (Negative) Urine RBC >182 H (0-5) /hpf Urine WBC >182 H (0-5) /hpf Urine WBC Clumps Many H (None) /hpf 02/10/21 02/10/21 Range/Units 16:14 16:14 WBC (3.8-10.6) k/uL RBC (3.80-5.40) m/uL Hgb (11.4-16.0) gm/dL Hct (34.0-46.0) % MCV (80.0-100.0) fL MCH (25.0-35.0) pg MCHC (31.0-37.0) g/dL RDW (11.5-15.5) % Plt Count (150-450) k/uL MPV Neutrophils % % Lymphocytes % % Monocytes % % Eosinophils % % Basophils % % Neutrophils # (1.3-7.7) k/uL Lymphocytes # (1.0-4.8) k/uL Monocytes # (0-1.0) k/uL Eosinophils # (0-0.7) k/uL Basophils # (0-0.2) k/uL PT (9.0-12.0) sec INR (<1.2) APTT (22.0-30.0) sec Sodium 140 (137-145) mmol/L Potassium 4.3 (3.5-5.1) mmol/L Chloride 105 (98-107) mmol/L Carbon Dioxide 27 (22-30) mmol/L Anion Gap 8 mmol/L BUN 10 (7-17) mg/dL Creatinine 0.60 (0.52-1.04) mg/dL Est GFR (CKD-EPI)AfAm >90 (>60 ml/min/1.73 sqM) Est GFR (CKD-EPI)NonAf >90 (>60 ml/min/1.73 sqM) Glucose 95 (74-99) mg/dL Plasma Lactic Acid Daren 1.1 (0.7-2.0) mmol/L Calcium 9.8 (8.4-10.2) mg/dL Total Bilirubin 0.9 (0.2-1.3) mg/dL AST 28 (14-36) U/L ALT 13 (4-34) U/L Alkaline Phosphatase 86 (38-126) U/L Total Protein 7.6 (6.3-8.2) g/dL Albumin 4.5 (3.5-5.0) g/dL Urine Color Urine Appearance (Clear) Urine pH (5.0-8.0) Ur Specific [place] (1.001-1.035) Urine Protein (Negative) Urine Glucose (UA) (Negative) Urine Ketones (Negative) Urine Blood (Negative) Urine Nitrite (Negative) Urine Bilirubin (Negative) Urine Urobilinogen (<2.0) mg/dL Ur Leukocyte Esterase (Negative) Urine RBC (0-5) /hpf Urine WBC (0-5) /hpf Urine WBC Clumps (None) /hpf Disposition Clinical Impression: Urinary tract infection, Pyelonephritis Disposition: HOME SELF-CARE Condition: Stable Instructions (If sedation given, give patient instructions): Urinary Tract Infection in Women (ED) Additional Instructions: Please return to the Emergency Department if symptoms worsen or any other concerns. Take antibiotics as prescribed, finish entire course. May take Tylenol or Motrin for any discomfort. Follow-up with your PCP. Prescriptions: Cephalexin [Keflex] 500 mg PO BID 10 Days #20 cap Is patient prescribed a controlled substance at d/c from ED?: No Referrals: Kayla Mary MD [Primary Care Provider] - 1-2 days Time of Disposition: 17:38
[2021-02-10 16:30] LABS: Basophils # (A) 0.1 k/uL (0-0.2); Basophils % (A) 1 %; Eosinophils # (A) 0.2 k/uL (0-0.7); Eosinophils % (A) 2 %; HCT 40.7 % (34.0-46.0); Lymphocytes # (A) 3.1 k/uL (1.0-4.8); Lymphocytes % (A) 21 %; MCH 27.1 pg (25.0-35.0); MCHC 31.8 g/dL (31.0-37.0); MCV 85.1 fL (80.0-100.0); Mean Platelet Volume 7.6; Monocytes # (A) 0.9 k/uL (0-1.0); Monocytes % (A) 6 %; Neutrophils # (A) 10.4 k/uL (1.3-7.7); Neutrophils % (A) 70 %; Platelet Count 285 k/uL (150-450); RBC 4.79 m/uL (3.80-5.40); RDW 13.1 % (11.5-15.5); WBC 14.9 k/uL (3.8-10.6)
[2021-02-10 16:35] LABS: Appearance,Urine Turbid (Clear); Bilirubin,Urine Negative (Negative); Blood,Urine Large (Negative); Color,Urine Dark Brown; Glucose,Urine (UA) Negative (Negative); Ketones,Urine Trace (Negative); Leukocyte Esterase,Urine Large (Negative); Nitrite,Urine Negative (Negative); Protein,Urine 2+ (Negative); RBC,Urine >182 /hpf (0-5); Specific Gravity,Urine 1.017 (1.001-1.035); Urobilinogen,Urine <2.0 mg/dL (<2.0); WBC,Urine >182 /hpf (0-5)
[2021-02-10 16:42] LABS: ALT 13 U/L (4-34); AST 28 U/L (14-36); African American GFR (CKD) >90 (>60 ml/min/1.73 sqM); Albumin 4.5 g/dL (3.5-5.0); Alkaline Phosphatase 86 U/L (38-126); Anion Gap 8 mmol/L; Blood Urea Nitrogen 10 mg/dL (7-17); Calcium 9.8 mg/dL (8.4-10.2); Carbon Dioxide 27 mmol/L (22-30); Chloride 105 mmol/L (98-107); Glucose 95 mg/dL (74-99); Non-African American GFR(CKD) >90 (>60 ml/min/1.73 sqM); Potassium 4.3 mmol/L (3.5-5.1); Sodium 140 mmol/L (137-145); Total Bilirubin 0.9 mg/dL (0.2-1.3); Total Protein 7.6 g/dL (6.3-8.2)
[2021-02-10 16:44] LABS: INR 0.9 (<1.2); Partial Thromboplastin Time 23.3 sec (22.0-30.0); Prothrombin Time 9.6 sec (9.0-12.0)
--- NOTE | 2021-02-10 17:24 | CT ---
EXAMINATION TYPE: CT abdomen pelvis wo con DATE OF EXAM: 02/10/2021 COMPARISON: March 13, 2021 HISTORY: Right sided pain with hematuria. History of partial nephrectomy on the right side. CT DLP: 412.2 mGycm Automated exposure control for dose reduction was used. Images obtained from the diaphragm to the floor the pelvis without contrast. Lung bases are clear of consolidation. There is no pleural effusion. Heart size is fairly normal. The re is no pericardial effusion. There are clips from cholecystectomy. Liver spleen pancreas appear int act. Bile ducts are not dilated. There are clips from cholecystectomy. Stomach is intact. There is no adrenal mass. Kidneys have normal size. There is no hydronephrosis. The ureters are not d ilated. There is no retroperitoneal adenopathy. Bladder distends smoothly. There is no inguinal herni a. There is no sign of a pelvic mass. There are sigmoid diverticula. I see no sign of diverticulitis. Appendix not definitely seen. There is no sign of thickened appendix. Lumbar vertebra appear intact. There is a minimal L4-5 spondylolisthesis without spondylolysis. There is no lumbar compression fracture. There is vacuum disc at L5-S1. The bony pelvis is intact. The hip joints are intact. IMPRESSION: Appendix not seen. No sign of appendicitis. There is clearing of the apparent seroma fluid collection involving the anterior peritoneum evident on the previous CT scan. There is colonic diverticulosis w ithout diverticulitis. No evidence of an acute abdomen and pelvis.
[2021-02-10] MEDS ORDERED: cefTRIAXone IN SWFI 1,000 MG/10 ML SYRINGE IVP STA (17:32)
[2021-02-10 17:56] VITALS: BP 135/84; PULSE 80; RESP 17; TEMP 98.8
== END 2021-02-10 17:56 | disposition home or self-care (01) ==
LOC: EC 14:21
DX: N39.0 Urinary tract infection, site not specified (principal); N12 Tubulo-interstitial nephritis, not specified as acute or chronic; E11.9 Type 2 diabetes mellitus without complications; E78.5 Hyperlipidemia, unspecified; I10 Essential (primary) hypertension; M19.90 Unspecified osteoarthritis, unspecified site; Z90.5 Acquired absence of kidney; Z90.49 Acquired absence of other specified parts of digestive tract
CPT/HCPCS: 36415; 80053; 83605; 85025; 85610; 85730; 81001; 87086; 74176; 99284; 96374; 96375; 96361 ×2; J0696; J1885; 87077; 87186

== ENCOUNTER → 2021-02-13 | Outpatient (CLI) | payer MEDICARE ==
[2021-02-14 00:32] LABS: Hemoglobin A1C 6.4 % (4.0-6.0)
[2021-02-14 02:36] LABS: African American GFR (CKD) 103.9 (60.0-200.0); Anion Gap 9.5 mmol/L (4.00-12.00); BUN/Creat Ratio 14.29 Ratio (12.00-20.00); Calcium 9.4 mg/dL (8.7-10.3); Carbon Dioxide 27.5 mmol/L (21.6-31.8); Chol/HDL Ratio 3.81; LDL Cholesterol,Calculated 91.8 mg/dL (0.0-131.0); Non-African American GFR(CKD) 89.7 (60.0-200.0); Potassium 4.7 mmol/L (3.5-5.5); VLDL Calculation 29.2 mg/dL (5.00-40.00)
== END | disposition home or self-care (01) ==
LOC: LABWHC1 10:39
PROVIDERS: ATTEND Internal Medicine
DX: E11.65 Type 2 diabetes mellitus with hyperglycemia (principal); E78.5 Hyperlipidemia, unspecified; E55.9 Vitamin D deficiency, unspecified
CPT/HCPCS: 36415; 80048; 80061; 82306; 83036

== ENCOUNTER → 2022-03-17 | Outpatient (CLI) | payer MEDICARE ==
--- NOTE | 2022-03-18 08:29 | MM ---
Reason for Exam: Screening (asymptomatic). Last mammogram was performed 1 year(s) and 9 month(s) ago. Patient History: Menarche at age 10. First Full-Term at age 21. Left ovary removed at age 38. Right ovary removed at age 38. Hysterectomy at age 38. Postmenopausal. Estrogen for 11 years from age 40 until age 51. Sister had breast cancer, age 54. Risk Values: Alexandria 5 year model risk: 3.3%. NCI Lifetime model risk: 10.4%. Prior Study Comparison: 04/01/2017 Bilateral Screening Mammogram, [facility]. 10/26/2018 Bilateral Screening Mammogram, [facility]. 06/17/2020 Bilateral Screening Mammogram, [facility]. Tissue Density: The breast tissue is heterogeneously dense. This may lower the sensitivity of mammography. Findings: Analyzed By CAD. Benign-appearing bilateral axillary lymph nodes are redemonstrated. There is no suspicious group of microcalcifications or new suspicious mass in either breast. Overall Assessment: Negative, BI-RAD 1 Management: Screening Mammogram of both breasts in 1 year. A clinical breast exam by your physician is recommended on an annual basis and results should be correlated with mammographic findings. Electronically signed and approved by: Gregg Jackson M.D.
== END | disposition home or self-care (01) ==
LOC: RADMAMWWP 09:26
PROVIDERS: ATTEND Internal Medicine
DX: Z12.31 Encounter for screening mammogram for malignant neoplasm of breast (principal)
CPT/HCPCS: 77063; 77067

== ENCOUNTER → 2022-03-27 | Outpatient (CLI) | payer MEDICARE ==
[2022-03-27 09:42] LABS: INR 0.9 (<1.2); Partial Thromboplastin Time 24.5 sec (22.0-30.0); Prothrombin Time 9.9 sec (9.0-12.0)
[2022-03-27 11:29] LABS: HCT 39.7 % (37.2-46.3); MCHC 30.2 g/dL (32.0-37.0); MCV 85.9 fL (80.0-97.0); Mean Platelet Volume 10.9 fL (9.5-12.2); NRBC Per 100 WBC 0 /100 WBCS (0.0-0.0); Platelet Count 354 X 10*3/uL (140-440); RBC 4.62 X 10*6/uL (4.10-5.20); RDW 13.1 % (11.5-14.5); WBC 8.87 X 10*3/uL (4.50-10.00)
[2022-03-27 11:39] LABS: Albumin 4.4 g/dL (3.8-4.9); Albumin/Globulin Ratio 1.76 (1.60-3.17); Anion Gap 9.6 mmol/L (10.00-18.00); BUN/Creat Ratio 20.97 Ratio (12.00-20.00); Blood Urea Nitrogen 14.7 mg/dL (9.0-27.0); Calcium 9.1 mg/dL (8.7-10.3); Carbon Dioxide 27.2 mmol/L (20.0-27.5); Globulin 2.5 g/dL (1.6-3.3); Non-African American GFR(CKD) 88.9 (60.0-200.0); Total Bilirubin 0.4 mg/dL (0.30-1.20); Total Protein 6.9 g/dL (6.2-8.2)
== END | disposition home or self-care (01) ==
LOC: LABWHC1 08:22
PROVIDERS: ATTEND Orthopaedic Surgery
DX: Z01.818 Encounter for other preprocedural examination (principal); M12.9 Arthropathy, unspecified
CPT/HCPCS: 36415; 80053; 83036; 85027; 85610; 85730; 86850; 86900; 86901; 87070

== ENCOUNTER → 2023-06-06 | Outpatient (CLI) | payer MEDICARE ==
--- NOTE | 2023-06-07 08:34 | MM ---
Reason for Exam: Screening (asymptomatic). Last mammogram was performed 1 year(s) and 2 month(s) ago. Patient History: Menarche at age 10. First Full-Term at age 21. Left ovary removed at age 38. Right ovary removed at age 38. Hysterectomy at age 38. Postmenopausal. Estrogen for 11 years from age 40 until age 51. Sister had breast cancer, age 54. Risk Values: Alexandria 5 year model risk: 2.3%. NCI Lifetime model risk: 6.9%. Prior Study Comparison: 10/26/2018 Bilateral Screening Mammogram, [facility]. 06/17/2020 Bilateral Screening Mammogram, [facility]. 03/17/2022 Bilateral MG 3D screening mammo w/cad, [facility]. Tissue Density: The breast tissue is heterogeneously dense. This may lower the sensitivity of mammography. Findings: Analyzed By CAD. There is no suspicious group of microcalcifications or new suspicious mass in either breast. Overall Assessment: Negative, BI-RAD 1 Management: Screening Mammogram of both breasts in 1 year. A clinical breast exam by your physician is recommended on an annual basis and results should be correlated with mammographic findings. Note on Alexandria scores and lifetime risk: 1. A Alexandria score greater than 3% is considered moderate risk. If this is the case, consider specialist referral to assess eligibility for a risk reducing agent. If overall lifetime risk for the development of breast cancer is 20% or higher, the patient may qualify for future screening with alternating mammogram and breast MRI. Electronically signed and approved by: Vivek King D.O.
== END | disposition home or self-care (01) ==
LOC: RADMAMWWP 15:59
PROVIDERS: ATTEND Internal Medicine
DX: Z12.31 Encounter for screening mammogram for malignant neoplasm of breast (principal); Z78.0 Asymptomatic menopausal state; Z80.3 Family history of malignant neoplasm of breast
CPT/HCPCS: 77063; 77067

== ENCOUNTER 2024-06-13 08:28 | Day surgery (SDC) | payer MEDICARE ==
[~2024-06-13 08:28] MED LIST changes: -DEXAMETHASONE SOD PHOSPHATE 4 MG/ML 1 ML VIAL IV ONE; -ONDANSETRON 4 MG/2 ML VIAL IVP ONE
[2024-06-13] MEDS: IV FLUID CONTINUATION 1,000 ML IV ONE ×2 (08:58→09:20)
[2024-06-13 09:04] VITALS: TEMP 97
[2024-06-13 09:04] LABS: Glucose,Whole Blood 97 mg/dL (70-110)
[2024-06-13] MEDS ORDERED: PROPOFOL 10 MG/ML 20 ML VIAL IV ONE (09:21)
[2024-06-13] MEDS ORDERED: LIDOCAINE 1% INJ 10MG/ML (20 ML MDV) ONE (09:21)
--- NOTE | 2024-06-13 09:37 | P.PCN ---
Date of Procedure: 06/13/24 Procedure(s) Performed: BRIEF HISTORY: Patient is a 68-year-old pleasant white female scheduled for an elective colonoscopy as a part of evaluation of iron deficiency anemia. PROCEDURE PERFORMED: Colonoscopy. PREOPERATIVE DIAGNOSIS: Iron deficiency anemia. IV sedation per Anesthesia. PROCEDURE: After informed consent was obtained, the patient, was brought into the endoscopy unit. IV sedation was administered by Anesthesia under continuous monitoring. Digital rectal examination was normal. Initially the Olympus CF-160 flexible video colonoscope was then inserted in the rectum, gradually advanced into the cecum without any difficulty. Careful examination was performed as the scope was gradually being withdrawn. Ileocecal valve and the appendiceal orifice were visualized and appeared normal. Prep was excellent. Mucosa of the cecum, ascending colon, transverse colon, descending colon, sigmoid colon, and rectum appeared normal. Scattered sigmoid diverticulosis retroflexion was performed in the rectum and no lesions were seen. The patient tolerated the procedure well. IMPRESSION: Normal-appearing colon from rectum to cecum with no evidence of colorectal neoplasia Scattered sigmoid diverticulosis. RECOMMENDATIONS: Findings of this examination were discussed with the patient as well as her family. She was advised to have repeat screening colonoscopy in 10 years..
[2024-06-13 10:12] VITALS: BP 159/91; PULSE 64; RESP 15
== END 2024-06-13 10:32 | disposition home or self-care (01) ==
LOC: ORWHC2ENDO 08:28
PROVIDERS: ATTEND Internal Medicine Gastroenterology
DX: K57.30 Diverticulosis of large intestine without perforation or abscess without bleeding (principal); D50.9 Iron deficiency anemia, unspecified; I10 Essential (primary) hypertension; E78.5 Hyperlipidemia, unspecified; E11.9 Type 2 diabetes mellitus without complications; G51.0 Bell's palsy; Z91.040 Latex allergy status; Z91.012 Allergy to eggs; Z88.8 Allergy status to other drugs, medicaments and biological substances; Z79.899 Other long term (current) drug therapy
CPT/HCPCS: 45378

== ENCOUNTER → 2024-06-14 | Outpatient (CLI) | payer MEDICARE ==
--- NOTE | 2024-06-20 08:01 | MM ---
Reason for Exam: Screening (asymptomatic). Last screening mammogram was performed 12 month(s) ago. Patient History: Menarche at age 10. First Full-Term at age 21. Left ovary removed at age 38. Right ovary removed at age 38. Hysterectomy at age 38. Postmenopausal. Estrogen for 11 years from age 40 until age 51. Sister had breast cancer, age 54. Risk Values: Alexandria 5 year model risk: 2.3%. NCI Lifetime model risk: 6.6%. Prior Study Comparison: 06/17/2020 Bilateral Screening Mammogram, [facility]. 03/17/2022 Bilateral MG 3D screening mammo w/cad, [facility]. 06/06/2023 Bilateral MG 3D screening mammo w/cad, [facility]. Tissue Density: There are scattered areas of fibroglandular density. Findings: Analyzed By CAD. Right breast: There is no suspicious group of microcalcifications or new suspicious mass. Left breast: There is no suspicious group of microcalcifications or new suspicious mass. Overall Assessment: Negative, BI-RAD 1 Management: Screening Mammogram of both breasts in [address] [facility] will attempt to contact patient to return for supplemental views and ultrasound if indicated. Patient should continue monthly self-breast exams. A clinical breast exam by your physician is recommended on an annual basis. This exam should not preclude additional follow-up of suspicious palpable abnormalities. Note on Alexandria scores and lifetime risk: 1. A Alexandria score greater than 3% is considered moderate risk. If this is the case, consider specialist referral to assess eligibility for a risk reducing agent. 2. If overall lifetime risk for the development of breast cancer is 20% or higher, the patient may qualify for future screening with alternating mammogram and breast MRI. Electronically signed and approved by: Srniath Thomason DO
== END | disposition home or self-care (01) ==
LOC: RADMAMWWP 11:56
PROVIDERS: ATTEND Internal Medicine
DX: Z12.31 Encounter for screening mammogram for malignant neoplasm of breast
CPT/HCPCS: 77063; 77067

== ENCOUNTER → 2024-06-20 | Outpatient (CLI) | payer MEDICARE ==
--- NOTE | 2024-06-20 13:54 | XR ---
EXAMINATION TYPE: XR chest 2V DATE OF EXAM: 06/20/2024 COMPARISON: 01/11/2021 TECHNIQUE: PA and lateral views submitted. HISTORY: Shortness of breath FINDINGS: The lungs are clear and there is no pneumothorax, pleural effusion, or focal pneumonia. Heart size normal and no overt failure. Osseous structures demonstrate hypertrophic and degenerative changes of the spine. Surgical clips in the abdomen. Pleural-based thickening along the lateral right rib cage. IMPRESSION: 1. No acute process.
== END | disposition home or self-care (01) ==
LOC: RADXRYALE 13:30
PROVIDERS: ATTEND Internal Medicine
DX: J44.9 Chronic obstructive pulmonary disease, unspecified
CPT/HCPCS: 71046

== ENCOUNTER → 2024-10-29 | Outpatient (CLI) | payer MEDICARE ==
[2024-10-29 16:52] LABS: Basophils # (A) 0.05 X 10*3/uL (0.00-0.10); Basophils % (A) 0.6 %; Eosinophils # (A) 0.72 X 10*3/uL (0.04-0.35); Eosinophils % (A) 8.6 %; HGB 10.3 g/dL (12.0-15.0); Lymphocytes # (A) 2.11 X 10*3/uL (0.90-5.00); Lymphocytes % (A) 25.2 %; MCH 23.5 pg (27.0-32.0); MCHC 29.4 g/dL (32.0-37.0); MCV 79.9 FL (80.0-97.0); Mean Platelet Volume 10.1 FL (9.5-12.2); Monocytes # (A) 0.65 X 10*3/uL (0.20-1.00); Monocytes % (A) 7.8 %; NRBC Per 100 WBC 0 X 10*3/uL (0.00-0.01); Neutrophils % (A) 57.3 %; Platelet Count 446 X 10*3/uL (140-440); RBC 4.38 X 10*6/uL (4.10-5.20); RDW 15.1 % (11.5-14.5); WBC 8.37 X 10*3/uL (4.50-10.00)
[2024-10-29 18:09] LABS: Chol/HDL Ratio 4.09 Ratio; LDL Cholesterol,Calculated 80.8 mg/dL (0.0-131.0)
== END | disposition home or self-care (01) ==
LOC: LABWHC1 10:30
PROVIDERS: ATTEND Internal Medicine
DX: E11.36 Type 2 diabetes mellitus with diabetic cataract (principal)
CPT/HCPCS: 36415; 80061; 82043; 82570; 83036; 85025

== ENCOUNTER 2024-11-10 11:46 | Emergency (ER) | payer MEDICARE ==
--- NOTE | 2024-11-10 12:18 | ED ---
Skin/Abscess/FB HPI <Sreekanth Dacosta - Last Filed: 11/10/24 14:53> - General Source: patient, family, RN notes reviewed Mode of arrival: ambulatory Limitations: no limitations <Leila López - Last Filed: 11/10/24 16:53> - General Chief complaint: Skin/Abscess/Foreign Body Stated complaint: knee pain Time Seen by Provider: 11/10/24 12:18 - History of Present Illness Initial comments: 69-year-old female presented the ER for evaluation of left knee pain. Patient reports that 09-10-2024 she underwent emergency surgical intervention for a septic joint of her left knee in [place]. She states prior to that she was treated with antibiotics for UTI. Patient reports for the past 3 days she has noticed an increasing in pain, swelling and warmth to her left knee. She states it is painful for range of motion and ambulation. Denies any new injuries or traumas. She denies any fevers, chills or myalgias. No recent antibiotics. Patient also with an erythematous macular rash to bilateral lower extremities, chest and back starting around the same time as the pain. She states she is pruritic in nature. She denies any new soaps, lotions, exposures. Patient has not followed up with orthopedics in [place]. No other complaints. (Leila López) - Related Data Home Medications Medication Instructions Recorded Confirmed Aspirin 81 mg PO DAILY 04/15/14 06/12/24 Simvastatin 40 mg PO HS 04/15/14 06/13/24 Fexofenadine HCl [Otilia Allergy] 180 mg PO DAILY 12/10/20 06/13/24 Losartan Potassium [Cozaar] 25 mg PO QAM 12/10/20 06/13/24 Pioglitazone HCl 30 mg PO QAM 12/10/20 06/13/24 metFORMIN HCL [Glucophage] 500 mg PO BID 12/10/20 06/13/24 Cholecalciferol [Vitamin D3 (25 50 mcg PO DAILY 02/10/21 06/13/24 Mcg = 1000 Iu)] atenoloL [Tenormin] 100 mg PO HS 02/10/21 06/13/24 Budesonide/Glycopyr/Formoterol 2 puff INHALATION BID 06/12/24 06/13/24 [Breztri Aerosphere Inhaler] Previous Rx's Medication Instructions Recorded Sulfamethox-Tmp 800-160Mg [Bactrim 1 each PO Q12HR #20 tab 11/10/24 Ds] Allergies Allergy/AdvReac Type Severity Reaction Status Date / Time erythromycin base Allergy Rash/Hives Verified 11/10/24 11:50 [Erythromycin Base] latex Allergy Rash/Hives Verified 11/10/24 11:50 egg AdvReac Itching, Verified 11/10/24 11:50 IF EXCESS INTAKE ONLY Review of Systems ROS Other: All systems not noted in ROS Statement are negative. <Sreekanth Dacosta - Last Filed: 11/10/24 14:53> ROS Other: All systems not noted in ROS Statement are negative. <Leila López - Last Filed: 11/10/24 16:53> ROS Statement: Those systems with pertinent positive or pertinent negative responses have been documented in the HPI. Past Medical History Past Medical History: Diabetes Mellitus, Hyperlipidemia, Hypertension, Osteoarthritis (OA) Additional Past Medical History / Comment(s): NIDDM. 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 HX HEPATITIS A. RT BENIGN KIDNEY TUMOR. Septic L knee History of Any Multi-Drug Resistant Organisms: None Reported Past Surgical History: Appendectomy, Cholecystectomy, Hernia Repair, Hysterectomy, Joint Replacement, Orthopedic Surgery Additional Past Surgical History / Comment(s): 1/3 RT KIDNEY REMOVED. SINUS BRANT G X2. RT TOTAL KNEE REPLACEMENT, twice. RT SHOULDER ROTATOR CUFF SURG. colonoscopy Past Anesthesia/Blood Transfusion Reactions: Postoperative Nausea & Vomiting (PONV) Additional Past Anesthesia/Blood Transfusion Reaction / Comment(s): no blood transfusion reaction Past Psychological History: No Psychological Hx Reported Smoking Status: Second hand smoke exposure Past Alcohol Use History: Occasional Past Drug Use History: None Reported - Past Family History Mother Family Medical History: Hypertension Additional Family Medical History / Comment(s): ALZHEIMER'S Father Family Medical History: Cancer, Hyperlipidemia Additional Family Medical History / Comment(s): BLADDER CANCER Sister(s) Family Medical History: Cancer Additional Family Medical History / Comment(s): BRAIN ANEURYSM. BREAST CANCER <Leila López - Last Filed: 11/10/24 16:53> General Exam Limitations: no limitations <Leila López - Last Filed: 11/10/24 16:53> Course <Leila López - Last Filed: 11/10/24 16:53> Vital Signs 11/10/24 11/10/24 11/10/24 11:50 12:15 14:59 Temperature 98.6 F 99.8 F H 98.6 F Pulse Rate 79 59 L Respiratory 18 16 Rate Blood Pressure 167/78 155/87 O2 Sat by Pulse 98 97 Oximetry - Reevaluation(s) Reevaluation #1: 11/10/24 16:53 Case discussed with on-call orthopedics, Dr. Schultz. He reported laboratory studies and synovial fluid analysis were very reassuring and not concerning of a septic joint. Patient can be discharged on oral antibiotics for infection prophylaxis and follow-up outpatient. (Leila López) Procedures - Joint Aspiration/Injection Consent Obtained: verbal consent Indications: R/O septic arthritis Side of Body: left Joint Aspirated: knee Skin Prep: Povidone-Iodine1% Local Anesthesia Used: Lidocaine 1% Amount of Anesthesia Used (mLs): 3 Needle Size Used: 18G Syringe Size Used: 10cc Fluid Obtained: bloody Total Fluid Obtained (mls): 5 Patient Tolerated Procedure: well, no complications Complications: none <Sreekanth Dacosta - Last Filed: 11/10/24 14:53> Medical Decision Making - Lab Data Result diagrams: 11/10/24 12:28 11/10/24 12:28 <Sreekanth Dacosta - Last Filed: 11/10/24 14:53> - Lab Data Result diagrams: 11/10/24 12:28 11/10/24 12:28 <Leila López - Last Filed: 11/10/24 16:53> - Lab Data Lab Results 11/10/24 11/10/24 11/10/24 Range/Units 12:28 12:28 12:28 WBC 9.4 (3.8-10.6) k/uL RBC 4.33 (3.80-5.40) m/uL Hgb 10.2 L (11.4-16.0) gm/dL Hct 33.2 L (34.0-46.0) % MCV 76.8 L (80.0-100.0) fL MCH 23.6 L (25.0-35.0) pg MCHC 30.7 L (31.0-37.0) g/dL RDW 14.7 (11.5-15.5) % Plt Count 456 H (150-450) k/uL MPV 7.1 Neutrophils % 69 % Lymphocytes % 23 % Monocytes % 5 % Eosinophils % 2 % Basophils % 0 % Neutrophils # 6.5 (1.3-7.7) k/uL Lymphocytes # 2.2 (1.0-4.8) k/uL Monocytes # 0.5 (0-1.0) k/uL Eosinophils # 0.2 (0-0.7) k/uL Basophils # 0.0 (0-0.2) k/uL Hypochromasia Moderate Microcytosis Slight Sodium 138 (137-145) mmol/L Potassium 4.2 (3.5-5.1) mmol/L Chloride 104 (98-107) mmol/L Carbon Dioxide 23 (22-30) mmol/L Anion Gap 11 mmol/L BUN 9 (7-17) mg/dL Creatinine 0.56 (0.52-1.04) mg/dL Est GFR (CKD-EPI)AfAm >90 (>60 ml/min/1.73 sqM) Est GFR (CKD-EPI)NonAf >90 (>60 ml/min/1.73 sqM) Glucose 115 H (74-99) mg/dL Plasma Lactic Acid Daren 1.4 (0.7-2.0) mmol/L Calcium 9.2 (8.4-10.2) mg/dL Total Bilirubin 0.6 (0.2-1.3) mg/dL AST 27 (14-36) U/L ALT 10 (4-34) U/L Alkaline Phosphatase 87 (38-126) U/L C-Reactive Protein 2.2 H (<1.0) mg/dL Total Protein 7.3 (6.3-8.2) g/dL Albumin 4.0 (3.5-5.0) g/dL Fluid Source Fluid Color Fluid Appearance Fluid RBC /uL Fluid Nucleated Cells /uL Fluid Polynuclear WBCs % Fluid Mononuclear WBCs % 11/10/24 Range/Units 15:19 WBC (3.8-10.6) k/uL RBC (3.80-5.40) m/uL Hgb (11.4-16.0) gm/dL Hct (34.0-46.0) % MCV (80.0-100.0) fL MCH (25.0-35.0) pg MCHC (31.0-37.0) g/dL RDW (11.5-15.5) % Plt Count (150-450) k/uL MPV Neutrophils % % Lymphocytes % % Monocytes % % Eosinophils % % Basophils % % Neutrophils # (1.3-7.7) k/uL Lymphocytes # (1.0-4.8) k/uL Monocytes # (0-1.0) k/uL Eosinophils # (0-0.7) k/uL Basophils # (0-0.2) k/uL Hypochromasia Microcytosis Sodium (137-145) mmol/L Potassium (3.5-5.1) mmol/L Chloride (98-107) mmol/L Carbon Dioxide (22-30) mmol/L Anion Gap mmol/L BUN (7-17) mg/dL Creatinine (0.52-1.04) mg/dL Est GFR (CKD-EPI)AfAm (>60 ml/min/1.73 sqM) Est GFR (CKD-EPI)NonAf (>60 ml/min/1.73 sqM) Glucose (74-99) mg/dL Plasma Lactic Acid Daren (0.7-2.0) mmol/L Calcium (8.4-10.2) mg/dL Total Bilirubin (0.2-1.3) mg/dL AST (14-36) U/L ALT (4-34) U/L Alkaline Phosphatase (38-126) U/L C-Reactive Protein (<1.0) mg/dL Total Protein (6.3-8.2) g/dL Albumin (3.5-5.0) g/dL Fluid Source Synovial Fluid Color [place] Fluid Appearance Bloody Fluid RBC 17756 /uL Fluid Nucleated Cells 6600 /uL Fluid Polynuclear WBCs 92 % Fluid Mononuclear WBCs 8 % Disposition <Sreekanth Dacosta - Last Filed: 11/10/24 14:53> Is patient prescribed a controlled substance at d/c from ED?: No Time of Disposition: 16:53 <Leila López - Last Filed: 11/10/24 16:53> Clinical Impression: Knee pain, S/P knee surgery Disposition: HOME SELF-CARE Condition: Stable Additional Instructions: Follow-up with orthopedics. Complete full course of Bactrim. Have a low threshold of returning to the ER for any fevers, chills, body aches, increasing pain and swelling to the knee. Prescriptions: Sulfamethox-Tmp 800-160Mg [Bactrim Ds] 1 each PO Q12HR #20 tab Referrals: Kayla Mary MD [Primary Care Provider] - 1-2 days Eric Schultz MD [STAFF PHYSICIAN] - 1-2 days
[2024-11-10 12:41] LABS: Basophils % (A) 0 %; Eosinophils # (A) 0.2 k/uL (0-0.7); Eosinophils % (A) 2 %; HCT 33.2 % (34.0-46.0); HGB 10.2 gm/dL (11.4-16.0); Hypochromasia Moderate; Lymphocytes # (A) 2.2 k/uL (1.0-4.8); Lymphocytes % (A) 23 %; MCH 23.6 pg (25.0-35.0); MCHC 30.7 g/dL (31.0-37.0); MCV 76.8 fL (80.0-100.0); Mean Platelet Volume 7.1; Microcytosis Slight; Monocytes # (A) 0.5 k/uL (0-1.0); Monocytes % (A) 5 %; Neutrophils # (A) 6.5 k/uL (1.3-7.7); Neutrophils % (A) 69 %; Platelet Count 456 k/uL (150-450); RBC 4.33 m/uL (3.80-5.40); RDW 14.7 % (11.5-15.5); WBC 9.4 k/uL (3.8-10.6)
[2024-11-10 12:59] LABS: ALT 10 U/L (4-34); AST 27 U/L (14-36); African American GFR (CKD) >90 (>60 ml/min/1.73 sqM); Alkaline Phosphatase 87 U/L (38-126); Anion Gap 11 mmol/L; Blood Urea Nitrogen 9 mg/dL (7-17); C Reactive Protein 2.2 mg/dL (<1.0); Calcium 9.2 mg/dL (8.4-10.2); Carbon Dioxide 23 mmol/L (22-30); Chloride 104 mmol/L (98-107); Glucose 115 mg/dL (74-99); Non-African American GFR(CKD) >90 (>60 ml/min/1.73 sqM); Potassium 4.2 mmol/L (3.5-5.1); Sodium 138 mmol/L (137-145); Total Bilirubin 0.6 mg/dL (0.2-1.3); Total Protein 7.3 g/dL (6.3-8.2)
[2024-11-10] MEDS: SODIUM CHLORIDE 0.9% 1,000 ML IV STA (13:02)
[2024-11-10] MEDS: ACETAMINOPHEN TAB 325 MG TAB PO STA (13:02)
[2024-11-10] MEDS: diphenhydrAMINE 50 MG/ML 1 ML VIAL IVP STA (13:02)
--- NOTE | 2024-11-10 13:12 | XR ---
Left knee HISTORY: Pain and swelling. COMPARISON: None. TECHNIQUE: 3 views of left knee were obtained FINDINGS: There is no fracture, dislocation or focal intraosseous abnormality. There is a large joint effusion. There is mild joint space narrowing and mild hypertrophic spurring of the medial compartment consiste nt with mild osteoarthritis. The lateral compartment joint space is well-preserved. IMPRESSION: 1. Large joint effusion. 2. Mild osteoarthritic change of the medial compartment of the knee. 3. No acute fracture, dislocation or focal intraosseous abnormality. [facility], Workstation: [facility], 11/10/2024 1:10 PM
[2024-11-10] MEDS: LIDOCAINE 1% INJ 10MG/ML (20 ML MDV) SQ ONE ×2 (14:43→14:44)
[2024-11-10 15:40] LABS: Appearance,BF Bloody; Color,BF Orange
[2024-11-10 16:17] LABS: Nucleated Cells, Body Fluid 6600 /uL; RBC, Body Fluid 77000 /uL
[2024-11-10 16:20] LABS: Mononuclear WBC,Body Fluid 8 %; Polynuclear WBC,Body Fluid 92 %; Total Cells Counted,Body Fluid 100
[2024-11-10 17:57] VITALS: BP 152/86; PULSE 68; RESP 17; TEMP 98.2
[2024-11-11 12:15] LABS: Erythrocyte Sedimentation Rate 73 mm/Hr (0-30)
== END 2024-11-10 17:05 | disposition home or self-care (01) ==
LOC: EC 11:46
DX: M25.562 Pain in left knee (principal); Z96.652 Presence of left artificial knee joint; Z77.22 Contact with and (suspected) exposure to environmental tobacco smoke (acute) (chronic); Z88.1 Allergy status to other antibiotic agents; Z91.040 Latex allergy status; Z91.012 Allergy to eggs
CPT/HCPCS: 36415; 80053; 85652; 89050; 83605; 85025; 86140; 87070; 87205; 82945; 84157; 73562; 99284; 96374; 96361; J1200; J2003